=== PATIENT | male | born 1945 | race Caucasian/White ===

== ENCOUNTER 2025-04-16 20:19 | Observation (INO) | payer MEDICARE, OTHER, SELFPAY ==
[2025-04-16 11:51] VITALS: BP 118/62
--- NOTE | 2025-04-16 12:05 | ED.GENMED ---
History of Present Illness
General
Chief Complaint: Fall
Time Seen by Provider: 04/16/25 11:55
History of Present Illness
History of Present Illness:
79-year-old male presents to the emergency department for evaluation after mechanical fall that occurred yesterday. He fell onto both knees, currently complaining of right knee and left hip/groin pain. He is not able to support his own weight but
can with assistance. Denies head strike. Does not take blood thinners
Review of Systems
Review of Systems
Allergies reviewed?: Yes
All Other Systems: ROS reviewed and negative except as documented in HPI and ROS
Phy Exam
Physical Exam
Physical Exam:
GEN: Well appearing, NAD, WDWN
HEENT: Oral mucosa moist, no scleral icterus
Cardiac: Regular rate
Lung: No respiratory distress, no tachypnea
MSK: No gross deformity or injuries. Moderate swelling to the right knee with minor abrasion, no gross deformity. No swelling to the left knee. Left hip range of motion normal, no visible signs of trauma, no shortening or external rotation.
Skin: Good color, no pallor or jaundice, no rashes. Skin tear to the right upper forearm with no active bleeding, no elbow deformity
Neuro: AO x3, moves all extremities freely
Psych: Calm, cooperative
Course
Orders/Labs/Results
Orders:
Orders
04/16/25 12:05
Acetaminophen [Tylenol] 1,000 mg PO NOW STA
Oxycodone [Roxicodone] 5 mg PO NOW STA
CR Hip - LT w/wo Pel 2-3 Vw* Urgent
Comment:
Reason For Exam: fall injury
Include a pelvis x-ray?: Yes
CR Knee- Right 4 Or More View* Urgent
Comment:
Reason For Exam: fall injury
04/16/25 13:24
CT Lower Ext W/o Iv Cont Rt Urgent
Comment:
Reason For Exam: fall, R knee pain, neg xr
CT Pelvis W/o Iv Contrast Urgent
Comment:
Reason For Exam: fall, L groin pain, neg xr
04/16/25 15:14
HYDROmorphone [Dilaudid] 0.5 mg IM NOW STA
04/16/25 17:24
Basic Metabolic Panel Urgent
Complete Blood Count/No Diff Urgent
Ferritin Urgent
Comment: ADDON
Folate Urgent
Comment: ADDON
Iron Urgent
Comment: ADDON
Total Iron Binding Urgent
Comment: ADDON
Vitamin B12 Urgent
Comment: ADDON
04/16/25 19:13
Add On- LAB Urgent
Tests Added?: iron, ferritin, tibc folate b12
Type And Crossmatch [Type+Screen] Urgent
04/16/25 19:14
EKG [Electrocardiogram (*1)] Urgent
Reason for Study: Other
Other Reason for Exam: fall
04/16/25 19:18
Immobilizer [Braces/Immobilizers] As Directed
Type of Brace/Immobilizer: Knee immobilizer
Abnormal Lab Results
04/16/25
17:24
RBC 2.83 L 10^6/uL
(4.70-6.10)
Hgb 8.6 L g/dL
(13.0-18.0)
Hct 25.9 L %
(39.0-52.0)
Chloride 108 H mmol/L
(98-107)
BUN 52 H mg/dl
(9-20)
Creatinine 1.7 H mg/dL
(0.7-1.3)
Glucose 166 H mg/dl
(70-99)
04/16/25 17:24
04/16/25 17:24
Vital Signs
Initial and Last Documented VS:
Initial Vital Signs
Temp Pulse Resp BP Pulse Ox
98.2 F 77 16 118/62 98
04/16/25 11:51 04/16/25 11:51 04/16/25 11:51 04/16/25 11:51 04/16/25 11:51
Last Documented Vital Signs
Temp Pulse Resp BP Pulse Ox
98.2 F 69 18 130/69 95
04/16/25 11:51 04/16/25 17:46 04/16/25 17:46 04/16/25 17:46 04/16/25 17:46
MDM/Problems Addressed
MDM/Problems Addressed:
Unfortunately the patient has a right tibial plateau fracture with hemarthrosis suggestive of PCL injury. Due to his associated left hip contusion he is having severe difficulty ambulating with walker assistance in the knee immobilizer. As such he
is not a safe discharge home and we will admit for pain control and rehab/SNF considerations
*Pulse Oximetry
SaO2: 98
Oxygen Mode of Delivery: Room air
Patient hypoxic: no
*Critical Care Note
Total Time (30-74mins, 75-104mins- exclusive of procedures): Not Applicable
ED Attending Note
-
Portions of this chart may have been created with voice recognition software.� Occasional wrong word or��sound alike� substitutions may have occurred due to the inherent limitations of voice recognition software.
Discharge Plan
Departure
Patient Disposition: Admit
Date of Disposition: 04/16/25
Time of Disposition: 18:10
Admit to: Med/Surg
Presentation/result/management discussed w/ accepting MD/DO: Hospitalist
Discharge Problem:
Closed fracture of right tibial plateau, Contusion of hip, left, Ambulatory dysfunction
Prescriptions:
No Action
pregabalin [Lyrica] 25 mg Capsule
25 mg PO BID
atorvastatin [Lipitor] 80 mg Tablet
80 mg PO QPM
carvedilol [Coreg] 25 mg Tablet
25 mg PO BID
acetaminophen [Tylenol] 325 mg Tablet
650 mg PO Q6HPRN PRN (Reason: mild pain)
Theragen Tablet
1 tab PO DAILY
amlodipine [Norvasc] 5 mg Tablet
5 mg PO QPM
aspirin 81 mg Tablet,Delayed Release (Dr/Ec)
81 mg PO Q48H
losartan 25 mg Tablet
25 mg PO QPM
furosemide [Lasix] 20 mg Tablet
40 mg PO HS
insulin aspart U-100 [Novolog FlexPen U-100 Insulin] 100 unit/mL (3 mL) Insulin Pen
25 sliding scale dose SC AC
cholecalciferol (vitamin D3) [Vitamin D3] 50 mcg (2,000 unit) Tablet
50 mcg PO BID
dapagliflozin propanediol [Farxiga] 10 mg Tablet
10 mg PO DAILY
insulin glargine U-300 conc [Toujeo Max U-300 SoloStar] 300 unit/mL (3 mL) Insulin Pen
60 unit SC BID
Mounjaro 7.5 mg/0.5 mL Pen Injector
7.5 mg SC TH
Referrals:
Erwin Montero DO [Family Provider, Family Practice]
Interventions
Interventions:
*General Assessment Last Done: 04/16/25 11:51
*Neglect/Abuse Screening Last Done: 04/16/25 11:51
*ED COVID-19 Vaccine History Last Done: 04/16/25 11:51
*ED Influenza Vaccine History Last Done: 04/16/25 11:51
*Risk Screen - Suicide (C-SSRS) Last Done: 04/16/25 11:51
ED-Musculoskeletal Assessment Last Done: 04/16/25 13:00
ED- Neurological Assessment Last Done: 04/16/25 13:00
ED-Skin Assessment Last Done: 04/16/25 13:00
Discharge Date and Time
Print Language: MALIAN
[2025-04-16] MEDS: ROXICODONE 5 MG PO (12:09)
[2025-04-16] MEDS: TYLENOL 1000 MG PO (12:10)
[2025-04-16 15:11] VITALS: BMI 31.9
[2025-04-16 15:12] VITALS: BP 120/59
[2025-04-16] MEDS: DILAUDID 0.5 MG IM (15:26)
[2025-04-16 17:39] LABS: Hematocrit 25.9 % (39.0-52.0); Hemoglobin 8.6 g/dL (13.0-18.0); Mean Corp Hgb Conc. 33.2 g/dL (33.0-37.0); Mean Corpuscular Volume 91.5 fL (80.0-94.0); Platelet Count 137 10^3/uL (130-400); Red Cell Dist. Width 13.9 % (11.5-14.5)
[2025-04-16 17:46] VITALS: BP 130/69
[2025-04-16 18:10] LABS: Blood Urea Nitrogen 52 mg/dl (9-20); Calcium 8.6 mg/dl (8.4-10.2); Carbon Dioxide 22 mmol/L (22-30); Chloride 108 mmol/L (98-107); Estimated Creatinine Clearance 42 ml/min; Glucose 166 mg/dl (70-99); Potassium 4.4 mmol/L (3.5-5.1); Sodium 137 mmol/L (135-145); eGFR 40.50
--- NOTE | 2025-04-16 19:10 | W.PN.UPDATE ---
Update Note
Progress Note Update
This note serves as an addendum to the H&P by franchise consultant Jacques Khan
HPI
79-year-old male presents to the emergency department for evaluation after mechanical fall that occurred yesterday. He fell onto both knees, currently complaining of right knee and left hip/groin pain. He is not able to support his own weight but
can with assistance. Denies head strike. Does not take blood thinners
Relevant VS
Vital Signs
Temp Pulse Resp BP Pulse Ox
98.2 F 69 18 130/69 95
04/16/25 11:51 04/16/25 17:46 04/16/25 17:46 04/16/25 17:46 04/16/25 17:46
PE
Gen: Not toxic
HEENT: anicteric
Neck: supple
Lungs: CTA
Cor: RRR S1 S2
Abdomen:�soft benign
MANAGER MOBILITY: AAO3 NFND
MS: No edema
No gross deformity or injuries.
Moderate swelling to the right knee with minor abrasion, no gross deformity. No swelling to the left knee. Left hip range of motion normal, no visible signs of trauma, no shortening or external rotation.
Psych: Calm, cooperative
Relevant Data
04/16/25
17:24
WBC 6.0
Hgb 8.6 L
MCV 91.5
Chloride 108 H
Carbon Dioxide 22
BUN 52 H
Creatinine 1.7 H
eGFR 40.50
04/16/25
17:24
Potassium 4.[address] Lower Ext W/o Iv Cont Rt
CT Pelvis W/o Iv Contrast
- No CT evidence for an acute posttraumatic abnormality of the pelvis.
- Small acute fracture of the tibial plateau posteriorly at midline. Given the location, likely an avulsion at the insertion of the posterior cruciate ligament.
R Knee XR
- No acute fracture or dislocation.
- Moderate joint space narrowing of the medial tibiofemoral compartment.
- Medial and patellofemoral marginal osteophytes. Small to moderate suprapatellar joint effusion. Severe vascular calcifications.
- Moderate hemarthrosis.
- Moderate osteoarthrosis of the right knee.
Lt Hip and Pelvis XR
No acute fracture or dislocation. Mild left hip joint space narrowing. The bony pelvis is intact. Vascular calcifications
NO PRIOR hospitalist admission:
ASSESSMENT & PLAN
Pending Rx reconciliation
Small acute fracture of the tibial plateau posteriorly at midline
Acute L Hip contusion led to acute gait dysfunction
S/P fall
Denied syncope
- Conservative no surgical approach - PRN analgesia
- PT/OT/CRM eval
- Ortho consult
Suspect CKD with associated ACdz
Normal K
Normal Bicarb
Hemodynamically stable
- avoid NSAIDs and any Nephrotoxic
- Trend Cr
Remote HX Balddr CA s/p cystectomy and prostectomy
- Has urethrostThis note serves as an addendum to the H&P by franchise consultant Jacques Khan
HPI
79-year-old male presents to the emergency department for evaluation after mechanical fall that occurred yesterday. He fell onto both knees, currently complaining of right knee and left hip/groin pain. He is not able to support his own weight but
can with assistance. Denies head strike. Does not take blood thinners
Relevant VS
Vital Signs
Temp Pulse Resp BP Pulse Ox
98.2 F 69 18 130/69 95
04/16/25 11:51 04/16/25 17:46 04/16/25 17:46 04/16/25 17:46 04/16/25 17:46
PE
Gen: Not toxic
HEENT: anicteric
Neck: supple
Lungs: CTA
Cor: RRR S1 S2
Abdomen:�soft benign
MANAGER MOBILITY: AAO3 NFND
MS: No edema
No gross deformity or injuries.
Moderate swelling to the right knee with minor abrasion, no gross deformity. No swelling to the left knee. Left hip range of motion normal, no visible signs of trauma, no shortening or external rotation.
Psych: Calm, cooperative
Relevant Data
04/16/25
17:24
WBC 6.0
Hgb 8.6 L
MCV 91.5
Chloride 108 H
Carbon Dioxide 22
BUN 52 H
Creatinine 1.7 H
eGFR 40.50
04/16/25
17:24
Potassium 4.4
[address] Lower Ext W/o Iv Cont Rt
CT Pelvis W/o Iv Contrast
- No CT evidence for an acute posttraumatic abnormality of the pelvis.
- Small acute fracture of the tibial plateau posteriorly at midline. Given the location, likely an avulsion at the insertion of the posterior cruciate ligament.
R Knee XR
- No acute fracture or dislocation.
- Moderate joint space narrowing of the medial tibiofemoral compartment.
- Medial and patellofemoral marginal osteophytes. Small to moderate suprapatellar joint effusion. Severe vascular calcifications.
- Moderate hemarthrosis.
- Moderate osteoarthrosis of the right knee.
Lt Hip and Pelvis XR
No acute fracture or dislocation. Mild left hip joint space narrowing. The bony pelvis is intact. Vascular calcifications
NO PRIOR hospitalist admission:
ASSESSMENT & PLAN
Small acute Fx of the tibial plateau posteriorly at midline
Acute L Hip contusion
Acute gait dysfunction
S/P fall
Denied syncope
- Conservative no surgical approach - PRN analgesia
- PT/OT/CRM eval
- Ortho consult
Suspect CKD
Anemic Hgb - DDX: ACdz
Normal K
Normal Bicarb
Hemodynamically stable
- avoid NSAIds and any Nephrotoxic
- Trend Cr
HX recent colonoscopy 2 weeks ago s/p 2 polyps removed
Remote HX cystectomy and proctectomy for bladder CA
- Urethrostomy
DVT : SCD Lt LLEx
Code: Full
OBS MS
--- NOTE | 2025-04-16 19:14 | HPS.HSE ---
Family Physician
-
Family Physician: Eriwn Montero
Chief Complaint
-
Mechanical fall right knee pain, left hip, groin pain and right elbow
History of Present Illness
79-year-old male reports had mechanical fall yesterday slipping on ice falling onto both knees and right elbow. He is complaining of right knee along with left hip and groin pain along with right elbow skin tear he is unable to sit on weight
without assistance. He denies head injury, LOC. He was found to have right tibial plateau fracture with moderate hemarthrosis that is nonoperative per Ortho. He was also noted to have Normocytic anemia by labs . The patient reports last 4
months his hemoglobin went from 12 to 10. He had outpatient colonoscopy 1 week ago finding 2 polyps knee but no cause of bleeding. He follows with oncology at [facility] for prior bladder cancer 12 years ago. He also follows with nephrology
Abiodun at [facility] for CKD. He denies fever, chills, headache, blurred vision, neck pain, chest pain, palpitations, shortness of breath, cough, abdominal pain, nausea, vomiting, diarrhea. He has past medical history of HTN, HLD, CKD 3B,
urostomy/prostatectomy, CAD/cardiac stent, DM2 smoker.
Medical History
Past Medical History
Past Medical History: Reports Other
Additional Past Medical History:
HTN
HLD
CKD 3B
urostomy/prostatectomy
CAD/cardiac stent
DM2 smoker.
Past Surgical History: Reports Other
Additional Past Surgical History:
Cardiac stent
urostomy/prostatectomy
Back surgery
Hernia repair x 2
Social History
Tobacco: Non-smoker
Alcohol: Occasional
Personal:
Living: With Family
Employment: Retired
Family History
Family History: Not pertinent
Allergies / Home Medications
Allergies reflects when Allergies were last updated in [facility].
Home Medications with original date entered in [facility]
Allergy/Medication List:
Allergies
Allergy/AdvReac Type Severity Reaction Status Date / Time
No Known Allergies Allergy Verified 04/16/25 11:55
Home Medications
acetaminophen 325 mg tablet (Tylenol) 650 mg PO Q6HPRN PRN mild pain 04/16/25
amlodipine 5 mg tablet (Norvasc) 5 mg PO QPM Blood Pressure 04/16/25
aspirin 81 mg tablet,delayed release 81 mg PO Q48H Blood Clot Prevention/Tx 04/16/25
atorvastatin 80 mg tablet (Lipitor) 80 mg PO QPM High Cholesterol 04/16/25
carvedilol 25 mg tablet (Coreg) 25 mg PO BID Blood Pressure 04/16/25
cholecalciferol (vitamin D3) 50 mcg (2,000 unit) tablet (Vitamin D3) 50 mcg PO BID Supplement 04/16/25
dapagliflozin propanediol 10 mg tablet (Farxiga) 10 mg PO DAILY Diabetes 04/16/25
furosemide 20 mg tablet (Lasix) 40 mg PO HS Fluid Retention/Swelling 04/16/25
insulin aspart U-100 100 unit/mL (3 mL) subcutaneous pen (Novolog FlexPen U-100 Insulin aspart) 25 sliding scale dose SC AC Diabetes 04/16/25
insulin glargine U-300 conc 300 unit/mL (3 mL) subcutaneous pen (Toujeo Max U-300 SoloStar) 60 unit SC BID Diabetes 04/16/25
losartan 25 mg tablet 25 mg PO QPM Blood Pressure 04/16/25
pregabalin 25 mg capsule (Lyrica) 25 mg PO BID Anti-Inflammatory 04/16/25
therapeutic multivitamin 1 tab PO DAILY Supplement 04/16/25
tirzepatide 7.5 mg/0.5 mL subcutaneous pen injector (Mounjaro) 7.5 mg SC TH Diabetes 04/16/25
Review of Systems
-
History Source: Patient and Family ( at bedside )
A 12 point ROS was completed and negative except as noted: Yes
Constitutional: Denies Fever, Fatigue or Chills
EENT: Denies Runny Nose
Respiratory: Denies Cough or Trouble Breathing
Cardiac: Denies Chest Pain, Diaphoresis, Palpitations or Syncope
Abdomen/GI: Denies Abdominal Pain, Nausea, Vomiting, Diarrhea, Constipated, Bloody Stools or Black Stools
: Reports Other (chronic urosotomy )
Musculoskeletal: Reports Joint Pain (right knee effusion, right elbow skin tear, left buttox pain)
Skin: Denies Itching or Rash
Neurological: Denies Dizzy or Headache
Endocrine: Reports No Symptoms
Hematologic/Lymphatic: Reports No Symptoms
Psych: Reports Calm
Physical Exam
Vital Signs
Vital Signs
Temp Pulse Resp BP Pulse Ox
98.2 F 69 18 130/69 95
04/16/25 11:51 04/16/25 17:46 04/16/25 17:46 04/16/25 17:46 04/16/25 17:46
Physical Exam
General: Conversant; No Fever or Chills
HEENT: NormoCephalic, Anicteric, Moist mucous membranes, Atraumatic, PERRLA, [place] Conjunctivae and No Ptosis
Respiratory: Clear; No Wheezes, Rales or Rhonchi
Cardiac: S1/S2 and Regular Rhythm; No Murmur, Rub, Gallop or Peripheral Edema
GI: Soft, Non Tender, Non Distended, Normal Bowel Sounds and No Hepatosplenomegaly
Rectal: Deferred by Provider
Genito-urinary: Deferred by me
Musculoskeletal: No Clubbing, No Cyanosis, Edema, Right Upper Extremity (elbow skin tear ) and Edema, Right Lower Extremity (right knee effusion knee immbolizer in place ); No Edema, Left Upper Extremity or Edema, Left Lower Extremity
Skin: Warm and Dry; No Rash
Neuro: AO x 3, No Motor Deficits, Nonfocal/grossly intact, Cranial Nerves Intact and No Sensory Deficits; No Slurred Speech, Facial Droop, Tremors or Sedated
Psych: Calm
Laboratory Results
-
04/16/25 17:24
04/16/25 17:24
Data Reviewed
-
Diagnostic Radiology: Report Reviewed by me
CT Scan: Report Reviewed by me
Lab Data: Labs Reviewed by me
Impression/Plan
-
Impression/plan:
OBS MEd surg
#Mechanical fall with right tibial plateau fracture/moderate hemarthrosis/ambulatory dysfunction/Right elbow skin tear
- Nonoperative
- Consult Ortho
-Continue Tylenol, oxycodone, Dilaudid, bowel regimen
- PT/OT/case management consult
CT lower extremity/pelvis
1. No CT evidence for an acute posttraumatic abnormality of the pelvis.
2. Small acute fracture of the tibial plateau posteriorly at midline.
Given the location, likely an avulsion at the insertion of the posterior cruciate ligament.
3.Moderate hemarthrosis.
4. Moderate osteoarthrosis of the right knee.
CT pelvis: Right lower quadrant ostomy, incisional hernias containing nondilated
bowel loops
Surgically absent urinary bladder and prostate gland
#Normocytic anemia unclear Cause
Hgb 8.6 down form 10 1 week ago , prior baseline 12. Recent colo 1 week ago benign polyps per pt
Hgb 8.6, MCV 91.5 no prior lab
Check iron panel, B12, folate
recommend calling oncologist in am to let them know about new hgb level
#CKD 3B
Creat 1.7 no prior baseline
Follow BMP
follows with Dr Abiodun lawson at [facility]
#History of urostomy/prostatectomy due to Bladder ca 12 years ago
follows with Onc at [facility] Dr palafox
#HTN
continue Norvasc 5 mg every afternoon, Coreg 25 mg twice daily 40 mg at bedtime, losartan 25 mg every afternoon
#HLD
Continue Lipitor 80 mg every afternoon
#CAD/cardiac stent
Continue Lipitor 80 mg every afternoon, beta-brittny
#DM 2
Patient on Toujeo 60 units twice daily, NovoLog 25 units with meals, Mounjaro 0.5 mg subcu
#Ex-smoker
VTE prophylaxis
scd left leg
full code
[2025-04-16 19:30] VITALS: BP 145/82
[2025-04-16 19:42] LABS: Iron 58 ug/dl (49-181)
[2025-04-16 19:51] LABS: Total Iron Binding Capacity 279 ug/dl (261-462)
[2025-04-16 20:17] LABS: Ferritin 178.0 ng/ml (17.9-464.0)
[2025-04-16 20:48] LABS: Folate > 20.0 ng/ml (2.76-20); Vitamin B12 562 pg/ml (239-931)
[2025-04-16 23:45] LABS: Glucose - Point of Care 296 mg/dl (70-99)
[2025-04-16 23:49] VITALS: BP 126/62
[2025-04-16] MEDS: LANTUS 0.2 UNITS SC (23:50)
[2025-04-16] MEDS: COREG 25 MG PO (23:51)
[2025-04-16] MEDS: VITAMIN D3 (cholecalciferol) 50 MCG PO (23:51)
[2025-04-16] MEDS: SENOKOT 17.2 MG PO (23:52)
[2025-04-16] MEDS: COLACE 100 MG PO (23:52)
[2025-04-17] MEDS: LASIX PO (00:05)
[2025-04-17] MEDS: DILAUDID 0.5 MG IV (00:05)
[2025-04-17 07:16] VITALS: BP 98/61
[2025-04-17 08:36] LABS: Glucose - Point of Care 132 mg/dl (70-99)
[2025-04-17] MEDS: SENOKOT 17.2 MG PO (08:58)
[2025-04-17] MEDS: COLACE 100 MG PO ×2 (08:59→20:19)
[2025-04-17] MEDS: THERAGRAN 1 TABLET PO (09:00)
[2025-04-17] MEDS: VITAMIN D3 (cholecalciferol) 50 MCG PO ×2 (09:00→20:20)
[2025-04-17] MEDS: COREG 25 MG PO ×2 (09:01→20:19)
[2025-04-17] MEDS: LANTUS 0.2 UNITS SC ×2 (09:03→22:36)
[2025-04-17] MEDS: ROXICODONE 5 MG PO ×2 (09:09→22:36)
[2025-04-17 09:18] LABS: Glycohemoglobin (HgbA1c) 8.1 % (4.0-5.9)
[2025-04-17] MEDS: FARXIGA 10 MG PO (10:24)
[2025-04-17] MEDS: TYLENOL 650 MG PO (10:26)
[2025-04-17] MEDS: LYRICA 25 MG PO ×2 (10:34→22:55)
[2025-04-17 10:53] VITALS: BP 123/63; BP 130/67; O2SAT 97
--- NOTE | 2025-04-17 11:29 | EDCM ---
Attempted to meet with pt to discuss SNF referrals but he had been moved from ED. Not yet seen by PT.
[2025-04-17 11:56] VITALS: BP 116/62
[2025-04-17 11:56] LABS: Hematocrit 29.2 % (39.0-52.0); Hemoglobin 9.6 g/dL (13.0-18.0); Mean Corp Hgb Conc. 32.9 g/dL (33.0-37.0); Mean Corpuscular Volume 93.6 fL (80.0-94.0); Nucleated Red Blood Cells % 0 % (-); Platelet Count 141 10^3/uL (130-400); Red Cell Dist. Width 14.1 % (11.5-14.5)
[2025-04-17 12:07] LABS: Calcium 9.0 mg/dl (8.4-10.2); Carbon Dioxide 25 mmol/L (22-30); Chloride 106 mmol/L (98-107); Estimated Creatinine Clearance 42 ml/min; Glucose 116 mg/dl (70-99); Potassium 4.7 mmol/L (3.5-5.1); Sodium 136 mmol/L (135-145); eGFR 40.50
[2025-04-17 12:13] LABS: Glucose - Point of Care 127 mg/dl (70-99)
[2025-04-17 12:20] LABS: Blood Urea Nitrogen 48 mg/dl (9-20)
--- NOTE | 2025-04-17 13:16 | W.PN.HOSP.TC ---
Today's Communication/Plan
-
Monitor vital signs
see plan
PT/OT
Orthopedics to see
Continue with insulin, monitor blood sugar closely
Assessment / Plan
Assessment / Plan
General: Conversant; No Fever or Chills
HEENT: NormoCephalic, Anicteric, Moist mucous membranes
Respiratory: Clear; No Wheezes, Rales or Rhonchi
Cardiac: S1/S2 and Regular Rhythm
GI: Soft, Non Tender, Non Distended, Normal Bowel Sounds
Musculoskeletal: No Clubbing, No Cyanosis, Edema, Right Upper Extremity (elbow skin tear ) and Edema, Right Lower Extremity (right knee effusion knee immbolizer in place );
Neuro: AO x 3, No Motor Deficits, Nonfocal/grossly intact
Psych: Calm
Mechanical fall with right tibial plateau fracture/moderate hemarthrosis/ambulatory dysfunction/Right elbow skin tear
- Nonoperative
- Consulted Ortho
-Continue Tylenol, oxycodone, Dilaudid, bowel regimen
- PT/OT/case management consult
CT lower extremity/pelvis
1. No CT evidence for an acute posttraumatic abnormality of the pelvis.
2. Small acute fracture of the tibial plateau posteriorly at midline.
Given the location, likely an avulsion at the insertion of the posterior cruciate ligament.
3.Moderate hemarthrosis.
4. Moderate osteoarthrosis of the right knee.
CT pelvis: Right lower quadrant ostomy, incisional hernias containing nondilated
bowel loops
Surgically absent urinary bladder and prostate gland
#Normocytic anemia unclear Cause
Hgb 8.6 down form 10 1 week ago , prior baseline 12. Recent colo 1 week ago benign polyps per pt
Hemoglobin now 9.6. Denies any bleeding
#CKD 3B
Creat 1.7 no prior baseline
Follow BMP
follows with Dr Abiodun lawson at [facility]
Does have urostomy
#History of urostomy/prostatectomy due to Bladder ca 12 years ago
follows with Onc at [facility] Dr palafox
#HTN
Continue amlodipine, Coreg, losartan
#HLD
Continue Lipitor
#CAD/cardiac stent
Continue Lipitor, beta-brittny
#DM 2
Patient on Toujeo 60 units twice daily, NovoLog 25 units with meals, Mounjaro 0.5 mg subcu
currently requiring much lower dose insulin; monitor closely
A1c 8.1
#Ex-smoker
VTE prophylaxis
scd left leg; start pharmacological prophylaxis if okay with orthopedics
full code
Anticipated Discharge: Within 24 hours
Subjective/Interval History
-
Date of Service: April 17, 2025
complains of constipation
Objective Data
-
Labs:
Laboratory Results
04/17/25
11:41
WBC 6.8
Hgb 9.6 L
Hct 29.2 L
Plt Count 141
Sodium 136
Potassium 4.7
Chloride 106
Carbon Dioxide 25
BUN 48 H
Creatinine 1.7 H
Glucose 116 H
Calcium 9.0
Vital Signs:
Vital Signs
Temp Pulse Resp BP Pulse Ox
98.4 F 69 18 116/62 98
04/17/25 11:56 04/17/25 11:56 04/17/25 11:56 04/17/25 11:56 04/17/25 11:56
I&O
04/16/25 04/17/25 04/18/25
06:59 06:59 06:59
Output Total 250 / 250
Balance -250 / -250
--- NOTE | 2025-04-17 13:47 | CM ---
internal audit senior manager reviewed patient's chart and patient was admitted under OBS, [facility] letter provided to patient. Patient lives with with his spouse in a split level home, is independent with adl's and uses a cane with ambulation. Patient was going to
outpatient rehab with [facility]. Patient was seen by physical therapy and recommendation is for is for home care, options reviewed with patient and patient has selected [facility], referral sent to [facility].
PCP: Erwin Montero
Pharmacy: [facility]
Plan; Home with [facility].
[2025-04-17] MEDS: NOVOLOG FLEXPEN 3 UNITS SC ×2 (13:59→17:28)
[2025-04-17] MEDS: NOVOLOG FLEXPEN-LOW RESISTANCE SC (13:59)
[2025-04-17 15:00] VITALS: BP 143/78
[2025-04-17] MEDS: MIRALAX 17 GRAMS PO (15:22)
[2025-04-17 16:54] LABS: Glucose - Point of Care 162 mg/dl (70-99)
[2025-04-17] MEDS: NOVOLOG FLEXPEN-LOW RESISTANCE 1 UNITS SC (17:28)
[2025-04-17] MEDS: COZAAR 25 MG PO (17:34)
[2025-04-17] MEDS: LIPITOR 80 MG PO (17:34)
[2025-04-17] MEDS: NORVASC 5 MG PO (17:35)
--- NOTE | 2025-04-17 19:38 | CON.ORTHO ---
Consultation
-
Date/Time Consultation Performed: 04/17/2025 6pm
Consultation - Orthopedics
History
79-year-old male presented to the emergency department after slip and fall on some ice complaints of right knee pain. He was subsequently diagnosed with a avulsion fracture posterior tibial plateau. He is admitted to the hospital service for
ambulatory dysfunction. Orthopedics is consulted for further evaluation and treatment. This evening patient reports that he slipped and fell yesterday but was able to continue to bear weight however with progressive pain that prompted his
presentation to the emergency department. Patient reports that he lives at home with his .
Allergies / Home Medications
Past medical history: Hypertension, hyperlipidemia, chronic kidney disease, coronary artery disease, type 2 diabetes
Past surgical history: Cardiac stent placement, urostomy/prostatectomy, back surgery, hernia surgery
Social history: lives with , retired
Family history: Not pertinent
Allergy/AdvReac Type Severity Reaction Status Date / Time
No Known Allergies Allergy Verified 04/16/25 11:55
�Medication �Instructions �Recorded
acetaminophen 325 mg tablet 650 mg PO Q6HPRN PRN mild pain 04/16/25
(Tylenol)
amlodipine 5 mg tablet (Norvasc) 5 mg PO QPM Blood Pressure 04/16/25
aspirin 81 mg tablet,delayed 81 mg PO Q48H Blood Clot 04/16/25
release Prevention/Tx
atorvastatin 80 mg tablet (Lipitor) 80 mg PO QPM High Cholesterol 04/16/25
carvedilol 25 mg tablet (Coreg) 25 mg PO BID Blood Pressure 04/16/25
cholecalciferol (vitamin D3) 50 50 mcg PO BID Supplement 04/16/25
mcg (2,000 unit) tablet (Vitamin
D3)
dapagliflozin propanediol 10 mg 10 mg PO DAILY Diabetes 04/16/25
tablet (Farxiga)
furosemide 20 mg tablet (Lasix) 40 mg PO HS Fluid 04/16/25
Retention/Swelling
insulin aspart U-100 100 unit/mL 25 sliding scale dose SC AC 04/16/25
(3 mL) subcutaneous pen (Novolog Diabetes
FlexPen U-100 Insulin aspart)
insulin glargine U-300 conc 300 60 unit SC BID Diabetes 04/16/25
unit/mL (3 mL) subcutaneous pen
(Toujeo Max U-300 SoloStar)
losartan 25 mg tablet 25 mg PO QPM Blood Pressure 04/16/25
pregabalin 25 mg capsule (Lyrica) 25 mg PO BID Anti-Inflammatory 04/16/25
therapeutic multivitamin 1 tab PO DAILY Supplement 04/16/25
tirzepatide 7.5 mg/0.5 mL 7.5 mg SC TH Diabetes 04/16/25
subcutaneous pen injector
(Mounjaro)
Vital Signs / Lab Results
Temp Pulse Resp BP Pulse Ox
98.4 F 73 17 143/78 95
04/17/25 15:00 04/17/25 15:00 04/17/25 15:00 04/17/25 15:00 04/17/25 18:34
04/17/25 11:41
04/17/25 11:41
10 point review systems reviewed and negative unless otherwise stated
General: Pleasant, no acute distress
Musculoskeletal right lower extremity
Skin intact, no erythema ecchymotic staining
Mild palpable knee effusion
Knee range of motion is 0 to about 75 degrees limited by pain
Able to strongly straight leg raise
Nontender palpation of extensor mechanism
Really unable to tolerate detailed ligamentous examination today
Nontender palpation of the medial lateral joint line
There are some tenderness palpation popliteal fossa/posterior knee
Positive EHL, FHL, ankle dorsiflexion, plantarflexion
Sensation intact to light touch distributions distally
Brisk cap refill
No other areas of bony tenderness palpation or crepitation along bones or joints on tertiary exam
Diagnostic studies
X-rays right knee/CT scan the independently viewed by myself. Radiology report reviewed. There is evidence of minimally displaced avulsion fracture posterior tibial plateau midline and area of PCL insertion
Assessment / Plan
79-year-old male status post fall with CT scan imaging consistent with avulsion fracture PCL. Had a long detailed discussion the patient regarding diagnosis and treatment options. We discussed with surgical nonsurgical options per my
recommendation is to proceed with nonsurgical treatment. Would recommend patient bear weight to his tolerance in a knee immobilizer with assistance of a walker.
Weightbearing as tolerated right lower extremity in knee immobilizer with assistance of a walker
PT OT
Pain control
Medical management per primary team
DVT prophylaxis
Follow-up outpatient 2 to 3 weeks for repeat clinical assessment
Please reach out with questions or concerns
[2025-04-17 20:19] VITALS: BP 123/61
[2025-04-17 21:25] LABS: Glucose - Point of Care 173 mg/dl (70-99)
[2025-04-17] MEDS: LASIX 40 MG PO (22:37)
[2025-04-17] MEDS: LYRICA PO (22:55)
[2025-04-17 23:13] VITALS: BP 124/61
--- NOTE | 2025-04-18 06:06 | PTCARENOTE ---
patient transferred to [address] / [facility] ([place], [place]).
[2025-04-18 06:12] VITALS: BP 129/63
--- NOTE | 2025-04-18 06:15 | TRANSFER ---
Patient received from ED holds. Alert and oriented x3, pleasant. Call pascual within reach. Bed alarm on and working.
[2025-04-18 08:36] VITALS: BP 138/73
[2025-04-18 08:44] LABS: Hematocrit 29.1 % (39.0-52.0); Hemoglobin 9.4 g/dL (13.0-18.0); Mean Corp Hgb Conc. 32.3 g/dL (33.0-37.0); Mean Corpuscular Volume 91.5 fL (80.0-94.0); Nucleated Red Blood Cells % 0 % (-); Platelet Count 152 10^3/uL (130-400); Red Cell Dist. Width 14.1 % (11.5-14.5)
[2025-04-18 09:00] LABS: Blood Urea Nitrogen 48 mg/dl (9-20); Calcium 9.0 mg/dl (8.4-10.2); Carbon Dioxide 23 mmol/L (22-30); Chloride 107 mmol/L (98-107); Estimated Creatinine Clearance 40 ml/min; Glucose 102 mg/dl (70-99); Potassium 4.6 mmol/L (3.5-5.1); Sodium 137 mmol/L (135-145); eGFR 37.82
[2025-04-18 09:15] LABS: Glucose - Point of Care 143 mg/dl (70-99)
[2025-04-18] MEDS: LANTUS 0.2 UNITS SC (09:15)
[2025-04-18] MEDS: NOVOLOG FLEXPEN 3 UNITS SC (09:16)
[2025-04-18] MEDS: MIRALAX 17 GRAMS PO (09:17)
[2025-04-18] MEDS: NOVOLOG FLEXPEN-LOW RESISTANCE SC ×2 (09:17→13:11)
[2025-04-18] MEDS: FARXIGA 10 MG PO (09:18)
[2025-04-18] MEDS: ASPIR LOW (ENTERIC COATED) 81 MG PO (09:18)
[2025-04-18] MEDS: THERAGRAN 1 TABLET PO (09:18)
[2025-04-18] MEDS: COLACE 100 MG PO (09:18)
[2025-04-18] MEDS: COREG 25 MG PO (09:19)
[2025-04-18] MEDS: VITAMIN D3 (cholecalciferol) 50 MCG PO (09:19)
[2025-04-18] MEDS: LYRICA 25 MG PO (09:22)
[2025-04-18] MEDS: DILAUDID 0.5 MG IV (10:45)
[2025-04-18] MEDS: HEPARIN 5000 UNITS SC (10:45)
--- NOTE | 2025-04-18 11:48 | W.PN.HOSP.TC ---
Today's Communication/Plan
-
monitor vitals
see plan
Weightbearing as tolerated right lower extremity in knee immobilizer with assistance of a walker
Orthopedic follow-up outpatient
Laxatives
Pain control
Discharge today
Time of discharge 36 minutes
Assessment / Plan
Assessment / Plan
General: Conversant; No Fever or Chills
HEENT: NormoCephalic, Anicteric, Moist mucous membranes
Respiratory: Clear; No Wheezes, Rales or Rhonchi
Cardiac: S1/S2 and Regular Rhythm
GI: Soft, Non Tender, Non Distended, Normal Bowel Sounds
Musculoskeletal: No Clubbing, No Cyanosis, Edema, Right Upper Extremity (elbow skin tear ) and Edema, Right Lower Extremity (right knee effusion knee immbolizer in place );
Neuro: AO x 3, No Motor Deficits, Nonfocal/grossly intact
Psych: Calm
Mechanical fall with right tibial plateau fracture/moderate hemarthrosis/ambulatory dysfunction/Right elbow skin tear
- Nonoperative
Ortho following, patient will follow-up with orthopedics outpatient
-Continue Tylenol, oxycodone, Dilaudid, bowel regimen
PT/OT rec home
Weightbearing as tolerated right lower extremity in knee immobilizer with assistance of a walker
CT lower extremity/pelvis
1. No CT evidence for an acute posttraumatic abnormality of the pelvis.
2. Small acute fracture of the tibial plateau posteriorly at midline.
Given the location, likely an avulsion at the insertion of the posterior cruciate ligament.
3.Moderate hemarthrosis.
4. Moderate osteoarthrosis of the right knee.
CT pelvis: Right lower quadrant ostomy, incisional hernias containing nondilated
bowel loops
Surgically absent urinary bladder and prostate gland
#Normocytic anemia unclear Cause
Hgb 8.6 down form 10 1 week ago , prior baseline 12. Recent colo 1 week ago benign polyps per pt
Hemoglobin now 9.4. Denies any bleeding
#CKD 3B
Creat 1.8 no prior baseline
Follow BMP
follows with Dr Abiodun lawson at [facility]
Does have urostomy
#History of urostomy/prostatectomy due to Bladder ca 12 years ago
follows [facility] Dr palafox
#HTN
Continue amlodipine, Coreg, losartan
#HLD
Continue Lipitor
#CAD/cardiac stent
Continue Lipitor, beta-brittny
#DM 2
Patient on Toujeo 60 units twice daily, NovoLog 25 units with meals, Mounjaro 0.5 mg subcu
currently requiring much lower dose insulin; monitor closely
A1c 8.1
#Ex-smoker
VTE prophylaxis
scd left leg; start pharmacological prophylaxis if okay with orthopedics
full code
Anticipated Discharge: Today
Subjective/Interval History
-
Date of Service: April 18, 2025
denies nausea
Objective Data
-
Labs:
Laboratory Results
04/18/25
06:50
WBC 5.7
Hgb 9.4 L
Hct 29.1 L
Plt Count 152
Sodium 137
Potassium 4.6
Chloride 107
Carbon Dioxide 23
BUN 48 H
Creatinine 1.8 H
Glucose 102 H
Calcium 9.0
Vital Signs:
Vital Signs
Temp Pulse Resp BP Pulse Ox
97.4 F 76 16 138/73 94
04/18/25 08:36 04/18/25 08:36 04/18/25 08:36 04/18/25 09:19 04/18/25 08:36
I&O
04/17/25 04/18/25 04/19/25
06:59 06:59 06:59
Intake Total 960 / 960
Output Total 250 / 250 3000 / 3000
Balance -250 / -250 -2040 / -2039
--- NOTE | 2025-04-18 12:00 | W.DCSUMMARY ---
Discharge Summary
Discharge Data
Date of Admission: 04/16/25
Date of Discharge: 04/18/25
-
Pending Results: No
Hospital Course
79-year-old with history of CKD, urostomy/prostatectomy due to bladder cancer, hypertension, hyperlipidemia, CAD status post cardiac stent, diabetes mellitus, anemia came to the hospital after mechanical fall with right tibial plateau fracture.
Patient was seen by orthopedics and was recommended to follow-up with them outpatient. Per orthopedics patient was made weightbearing as tolerated right lower extremity in knee immobilizer with assistance of a walker. Patient was seen by physical
therapy who recommended home health. Once his symptoms continue to improve, he was then discharged home with instructions to follow-up with all the physicians outpatient.
Discharge Plan
-
Patient Disposition: Home with Home Care
Discharge Diagnosis/Procedures: Mechanical fall with right tibial plateau fracture
Ambulatory dysfunction
Right elbow skin tear
Anemia of chronic disease
Diabetes mellitus
Condition: Fair
Diet: Diabetic, Carb Controlled
Activity: Other activity
Additional Activity: Weightbearing as tolerated right lower extremity in knee immobilizer with assistance of a walker
Driving Restrictions: No driving
Activity Restrictions/Additional Instructions:
Weightbearing as tolerated right lower extremity in knee immobilizer with assistance of a walker
Monitor your blood sugar closely and uptitrate insulin if needed
Referrals:
Erwin Montero DO [Family Provider, Family Practice] - in less than 1 week
Morales Peters MD [Active, Orthopedics] - in one to two weeks
Prescriptions:
New
polyethylene glycol 3350 17 gram Powder In Packet
17 g PO DAILY Qty: 0 0RF
oxycodone 5 mg Tablet
5 mg PO Q4HPRN PRN (Reason: severe pain) Qty: 20 0RF
Continued
pregabalin [Lyrica] 25 mg Capsule
25 mg PO BID
atorvastatin [Lipitor] 80 mg Tablet
80 mg PO QPM
carvedilol [Coreg] 25 mg Tablet
25 mg PO BID
acetaminophen [Tylenol] 325 mg Tablet
650 mg PO Q6HPRN PRN (Reason: mild pain)
therapeutic multivitamin Tablet
1 tab PO DAILY
amlodipine [Norvasc] 5 mg Tablet
5 mg PO QPM
aspirin 81 mg Tablet,Delayed Release (Dr/Ec)
81 mg PO Q48H
losartan 25 mg Tablet
25 mg PO QPM
furosemide [Lasix] 20 mg Tablet
40 mg PO HS
cholecalciferol (vitamin D3) [Vitamin D3] 50 mcg (2,000 unit) Tablet
50 mcg PO BID
dapagliflozin propanediol [Farxiga] 10 mg Tablet
10 mg PO DAILY
Mounjaro 7.5 mg/0.5 mL Pen Injector
7.5 mg SC TH
Changed
insulin aspart U-100 [Novolog FlexPen U-100 Insulin] 100 unit/mL (3 mL) Insulin Pen
5 sliding scale dose SC AC Qty: 0 0RF
insulin glargine U-300 conc [Toujeo Max U-300 SoloStar] 300 unit/mL (3 mL) Insulin Pen
20 unit SC BID Qty: 0 0RF
Discharge Orders:
Discharge Patient (As Directed); Ordered 04/18/25
Ordered By: Hood Quintana
Discharge Date and Time
Discharge Date/Time: 04/18/25 17:25
Print Language: MALAWIAN
[2025-04-18 13:04] LABS: Glucose - Point of Care 87 mg/dl (70-99)
[2025-04-18] MEDS: NOVOLOG FLEXPEN SC (13:11)
--- NOTE | 2025-04-18 13:40 | CM ---
Addendum entered by Kassie Valera 04/18/25 15:24:
[facility] does not have availability until next week start of care, no response from [facility], no availability for [facility]. Spoke with Sanjeev at [facility], able to accept patient for PT, OT, and nursing, aware of d/c today.
Patient scheduled for 4:20 p.m. ambulance transport.
[facility]
Original Note:
CM reviewed chart, patient seen bedside, for d.c today.
Update to [facility] on d/c.
Patient will require ambulance transport home, 6 steps to enter, confirmed home address.
CM will continue to follow for all d.c needs.
Plan; home with [facility], ambulance transport
[2025-04-18 15:00] VITALS: BP 117/61
--- NOTE | 2025-04-18 16:16 | VNURNOTE ---
Home Health Liaison spoke with patient's spouse to discuss [facility] nurse/therapy, visits, schedule and homebound status. Explained that visits at home will be 2-3 x per week to assess and teach medical management. Explained that we can see patient
within a week - we could see sooner if cancellation but I cannot promise. Spouse did not want to wait up to a week and requested another agency. NICOLE Cox updated.
[2025-04-18] MEDS: ROXICODONE 5 MG PO (16:35)
== END 2025-04-18 17:25 | disposition home health service (06) ==
LOC: 4 WEST ACU 20:19
PROVIDERS: Clinical Nurse Specialist Family Health; Physician Assistant; ADMITTING PHYSICIAN Internal Medicine; ATTENDING PHYSICIAN Internal Medicine; CONSULT PHYSICIAN Orthopaedic Surgery; EMERGENCY PHYSICIAN Emergency Medicine; FAMILY PHYSICIAN Family Medicine
DX: S82.141A Displaced bicondylar fracture of right tibia, initial encounter for closed fracture (principal); S70.02XA Contusion of left hip, initial encounter; S51.011A Laceration without foreign body of right elbow, initial encounter; R10.32 Left lower quadrant pain; W00.0XXA Fall on same level due to ice and snow, initial encounter; Y93.01 Activity, walking, marching and hiking; Y92.9 Unspecified place or not applicable; M25.061 Hemarthrosis, right knee; M17.11 Unilateral primary osteoarthritis, right knee; R26.2 Difficulty in walking, not elsewhere classified; N18.32 Chronic kidney disease, stage 3b; M25.552 Pain in left hip; M25.561 Pain in right knee; I25.10 Atherosclerotic heart disease of native coronary artery without angina pectoris; M25.761 Osteophyte, right knee; R26.9 Unspecified abnormalities of gait and mobility; E78.5 Hyperlipidemia, unspecified; E11.22 Type 2 diabetes mellitus with diabetic chronic kidney disease; I12.9 Hypertensive chronic kidney disease with stage 1 through stage 4 chronic kidney disease, or unspecified chronic kidney disease; K43.2 Incisional hernia without obstruction or gangrene; I25.2 Old myocardial infarction; K59.00 Constipation, unspecified; D63.8 Anemia in other chronic diseases classified elsewhere; Z87.891 Personal history of nicotine dependence; Z79.85 Long-term (current) use of injectable non-insulin antidiabetic drugs; Z90.79 Acquired absence of other genital organ(s); Z86.0100 Personal history of colon polyps, unspecified; Z85.51 Personal history of malignant neoplasm of bladder; Z79.82 Long term (current) use of aspirin; Z79.84 Long term (current) use of oral hypoglycemic drugs; Z79.4 Long term (current) use of insulin; Z95.5 Presence of coronary angioplasty implant and graft
CPT/HCPCS: 72192; 73502; 73564; 73700; 80048; 82607; 82728; 82746; 82962; 83036; 83540; 83550; 85025; 85027; 86850; 86900; 86901; 93005; 97116; 97166; 97530; 97535; G0378